=== PATIENT | female | born 1945 | race Asian ===

== ENCOUNTER 2021-06-12 13:33 | Emergency (ER) | payer MEDICARE, OTHER ==
[~2021-06-12] VITALS: Ht 167.6 cm; Wt 72.6 kg
[2021-06-12] MEDS ORDERED: CASIRIVIMAB/IMDEVIMAB 10 ML VIAL IV ONE (14:00)
[2021-06-12] MEDS ORDERED: ONDANSETRON HCL INJ 2MG/ML 2ML 2 MG/ML VIAL IV STA (14:00)
[2021-06-12] MEDS ORDERED: CASIRIVIMAB/IMDEVIMAB 600 ML in SODIUM CHLORIDE 0.9% 100 ML IV ONE (14:30)
== END 2021-06-12 15:57 | disposition home or self-care (01) ==
LOC: ER 13:43
DX: R05 Cough (principal); U07.1 COVID-19; R11.0 Nausea; I10 Essential (primary) hypertension; E11.9 Type 2 diabetes mellitus without complications; E78.5 Hyperlipidemia, unspecified; K21.9 Gastro-esophageal reflux disease without esophagitis; J45.909 Unspecified asthma, uncomplicated
CPT/HCPCS: 99282; J2405